=== PATIENT | female | born 1955 | race Hispanic/Latino ===

== ENCOUNTER 2017-10-04 12:44 | Emergency (ER) | payer OTHER ==
[2017-10-04] MEDS ORDERED: SUBLIMAZE IV ONE (13:42)
--- NOTE | 2017-10-04 13:42 | Emergency Department Report ---
ED General Adult HPI - General Chief complaint: Arrhythmia/Palpitations Stated complaint: CHEST PAIN Time Seen by Provider: 10/04/17 13:28 Source: patient, EMS (ems notes not available at time of chart dictation), RN notes reviewed Mode of arrival: Stretcher Limitations: No Limitations - History of Present Illness Initial comments: This is a 61-year-old female who is not known to this provider previously. She currently follows with the [facility]. She has a history of nonischemic cardiomyopathy, [employer] [facility] ICD device, ejection fraction of 10-15%, and former tobacco consumption. Her only antiarrhythmic that she takes is metoprolol. She presents to the ER with complaint of ICD activation 2. She reports being in her usual state of health prior to the event. After the activation, she reports left-sided chest wall pain. Her pain feels like pressure and does not radiate anywhere. She currently denies headache, shortness of breath, abdominal pain, urinary symptoms, focal extremity weakness, numbness. She denies toxic drug ingestion. sHe denies recent cocaine use. -: Sudden Location: chest Radiation: non-radiation Quality: aching Consistency: other Improves with: other Worsens with: other Associated Symptoms: chest pain, malaise, weakness, other. denies: confusion, cough, diaphoresis, fever/chills, headaches, loss of appetite, nausea/vomiting, rash, seizure, shortness of breath, syncope - Related Data Home Medications Medication Instructions Recorded Confirmed Last Taken Furosemide [Lasix TAB] 20 mg PO DAILY PRN 02/03/14 02/03/14 Unknown Previous Rx's Medication Instructions Recorded Last Taken Type Aspirin [Aspirin TAB] 325 mg PO QDAY #30 tablet 02/07/14 Unknown Rx Cephalexin [Keflex] 500 mg PO TID #9 capsule 02/07/14 Unknown Rx HYDROcodone/APAP 5-325 [[place] 1 each PO Q6HR PRN #10 tablet 02/07/14 Unknown Rx 5-325 mg TAB] Losartan [Cozaar] 25 mg PO QDAY #30 tablet 02/07/14 Unknown Rx Metoprolol [Lopressor TAB] 50 mg PO Q8HR #90 tablet 02/07/14 Unknown Rx Allergies Allergy/AdvReac Type Severity Reaction Status Date / Time No Known Allergies Allergy Verified 10/04/17 13:26 ED Review of Systems ROS: Stated complaint: CHEST PAIN Other details as noted in HPI Comment: All other systems reviewed and negative ED Past Medical Hx - Past Medical History Previous Medical History?: Yes Hx CVA: Yes (tia 12/05) Hx Congestive Heart Failure: Yes Hx Diabetes: No Hx Asthma: No Hx COPD: No - Surgical History Past Surgical History?: Yes Hx Internal Defibrillator: Yes Additional Surgical History: hysterectomy, cardiac cath, cataract - Social History Smoking Status: Former Smoker Substance Use Type: None - Medications Home Medications: Home Medications Medication Instructions Recorded Confirmed Last Taken Type Furosemide [Lasix TAB] 20 mg PO DAILY PRN 02/03/14 02/03/14 Unknown History Aspirin [Aspirin TAB] 325 mg PO QDAY #30 tablet 02/07/14 Unknown Rx Cephalexin [Keflex] 500 mg PO TID #9 capsule 02/07/14 Unknown Rx HYDROcodone/APAP 5-325 [[place] 1 each PO Q6HR PRN #10 tablet 02/07/14 Unknown Rx 5-325 mg TAB] Losartan [Cozaar] 25 mg PO QDAY #30 tablet 02/07/14 Unknown Rx Metoprolol [Lopressor TAB] 50 mg PO Q8HR #90 tablet 02/07/14 Unknown Rx ED Physical Exam - General Limitations: No Limitations General appearance: alert, anxious - Head Head exam: Present: atraumatic, normocephalic - Eye Eye exam: Present: normal appearance, EOMI. Absent: nystagmus - ENT ENT exam: Present: normal exam, normal orophraynx, mucous membranes moist, normal external ear exam - Neck Neck exam: Present: normal inspection, full ROM - Respiratory Respiratory exam: Present: normal lung sounds bilaterally. Absent: respiratory distress, chest wall tenderness - Cardiovascular Cardiovascular Exam: Present: normal rhythm, tachycardia, normal heart sounds. Absent: systolic murmur, diastolic murmur, rubs, gallop - GI/Abdominal GI/Abdominal exam: Present: soft, normal bowel sounds. Absent: distended, tenderness, guarding, rebound, rigid, pulsatile mass - Extremities Exam Extremities exam: Present: normal inspection, full ROM, normal capillary refill , other (2+ pulses noted in the bilateral upper, lower extremities. Compartments soft. No long bony tenderness. The pelvis is stable.). Absent: pedal edema, joint swelling, calf tenderness - Back Exam Back exam: Present: normal inspection, full ROM. Absent: tenderness, CVA tenderness (R), paraspinal tenderness, vertebral tenderness - Neurological Exam Neurological exam: Present: alert, oriented X3, CN II-XII intact, other ( Extraocular movements intact. Tongue midline. No facial droop. Facial sensation intact to light touch in the V1, V2, V3 distribution bilaterally. 5 and 5 strength in 4 extremities.. Sensation is intact to light touch in 4 extremities.). Absent: motor sensory deficit - Psychiatric Psychiatric exam: Present: anxious - Skin Skin exam: Present: warm, dry, intact, normal color. Absent: rash ED Course Vital Signs 10/04/17 12:45 Temperature 97.9 F Pulse Rate 116 H Respiratory 20 Rate Blood Pressure 145/74 O2 Sat by Pulse 97 Oximetry - Reevaluation(s) Reevaluation #1: 10/04/17 15:39 Device interrogation indicates the patient had A. fib with RVR. No V. fib or V. tach as per the device customer account representative. Case is discussed with Dr. Ulloa, [place] physician who has also discussed the case with Dr. Salazar, Hospital physician at [facility], and arrangements have been made to transfer patient to [facility]. Dr. Salazar is the accepting physician. This was discussed with the patient and her family members were informed about the plan of care. ED Medical Decision Making - Lab Data Result diagrams: 10/04/17 14:18 10/04/17 14:18 Vital Signs 10/04/17 12:45 Temperature 97.9 F Pulse Rate 116 H Respiratory 20 Rate Blood Pressure 145/74 O2 Sat by Pulse 97 Oximetry - EKG Data EKG shows normal: sinus rhythm Rate: tachycardia - EKG Data Interpretation: no acute changes, unchanged when compared t 10/04/17 14:28 Sinus tachycardia, premature ventricular contractions, normal axis, QTC within normal limits, poor R wave progression, not a STEMI. Appears unchanged when compared to prior EKG from 10/29/2014. Motion artifact is noted. - Radiology Data Radiology results: pending, image reviewed interpreted by me: X-ray of the chest, interpreted by me, no acute disease, left-sided single lead ICD device is noted. - Medical Decision Making Differential diagnosis, including but not limited to: Arrhythmia, structural cardiac disease, electrolyte derangement Acute coronary syndrome Assessment and plan: 61-year-old female who reports ICD activation 2. We performed our own interrogation here, and transmitted the results to [facility]. The [employer] customer account representative, Mr. Rizwan Moore, reviewed the results, informed me that patient had 2 shocks, 5 J, and 30 J. He indicates the first shock was for presumed A. fib with RVR. He is not sure what the second shock was for. He reports a rapid heart rate of 220 bpm. He is not certain if it was SVT or ventricular ablation/tachycardia. We have contacted the [facility], and I have discussed the case with Dr. Ulloa, who is going to consult her card grinder to get back to me. The meantime , the patient will be interrogated by the [facility] customer account representative, her laboratory studies and electrolytes are pending, and an x-ray of the chest is also pending. Patient will most likely require admission for chest pain, ICD activation 2, and needs to be ruled out for V. fib/V. tach. Critical care attestation.: If time is entered above; I have spent that time in minutes in the direct care of this critically ill patient, excluding procedure time. ED Disposition Clinical Impression: Arrhythmia, Chest pain Disposition: [id number] [facility] GEN HOSP IP Is pt being admited?: No Does the pt Need Aspirin: Yes Condition: Stable Instructions: Chest Pain (ED) Referrals: PRIMARY CARE, [Primary Care Provider] - 3-5 Days
[2017-10-04 14:34] LABS: Hematocrit 42.9 % (30.3-42.9); Hemoglobin 14.6 gm/dl (10.1-14.3); Mean Corpuscular HGB Conc 34 % (30-34); Mean Corpuscular Hemoglobin 31 pg (28-32); Mean Corpuscular Volume 91 fl (79-97); Platelet Count 270 K/mm3 (140-440); Red Blood Count 4.73 M/mm3 (3.65-5.03); Red Cell Distribution Width 14.5 % (13.2-15.2)
[2017-10-04 14:47] LABS: INR 0.88 (0.87-1.13)
[2017-10-04 14:48] LABS: Partial Thromboplastin Time 23.7 Sec. (24.2-36.6)
[2017-10-04 14:52] LABS: BUN/Creatinine Ratio 18; Blood Urea Nitrogen 14 mg/dL (7-17); Calcium 9.6 mg/dL (8.4-10.2); Hemolysis Index 7
[2017-10-04] MEDS ORDERED: BABY ASPIRIN PO ONE (15:19)
--- NOTE | 2017-10-04 15:25 | XRay Report ---
AP CHEST: HISTORY: Dysrhythmia A single lead pacemaker device terminates in the right ventricle. AP view of the chest demonstrates a normal mediastinal and cardiac contour with clear lungs and normal bony and soft tissue structures. IMPRESSION: Unremarkable AP chest. No significant change since 10/29/14.
[2017-10-04] MEDS ORDERED: LOPRESSOR PO ONE (15:38)
[2017-10-04] MEDS ORDERED: SUBLIMAZE ONE (16:12)
[2017-10-04 18:11] VITALS: BP 130/79
== END 2017-10-04 18:12 | disposition short-term general hospital (02) ==
LOC: ED 12:44
DX: I49.9 Cardiac arrhythmia, unspecified (principal); R07.89 Other chest pain; Z86.73 Personal history of transient ischemic attack (TIA), and cerebral infarction without residual deficits; I50.9 Heart failure, unspecified; Z90.710 Acquired absence of both cervix and uterus; Z87.891 Personal history of nicotine dependence; Z98.890 Other specified postprocedural states; Z95.810 Presence of automatic (implantable) cardiac defibrillator
CPT/HCPCS: 36415; 71045; 80048; 83735; 84443; 84484; 85027; 85610; 85730; 93005; 93010; 96374; 99285; J3010

== ENCOUNTER 2021-03-25 00:41 | Emergency (ER) | payer MEDICARE ==
[2021-03-25] MEDS ORDERED: SODIUM CHLORIDE 0.9% 500 ML 500 ML IV ONE (00:57)
[2021-03-25] MEDS ORDERED: HEPARIN 10,000 UNITS/10 ML VIAL IV PRN (00:57)
[2021-03-25 01:24] LABS: Basophils # (Auto) 0.1 K/mm3 (0.0-0.1); Eosinophils # (Auto) 0.3 K/mm3 (0.0-0.4); Eosinophils % (Auto) 3.4 % (0.0-4.3); Hematocrit 41.4 % (30.3-42.9); Hemoglobin 13.5 gm/dl (10.1-14.3); Lymphocytes # (Auto) 2.5 K/mm3 (1.2-5.4); Lymphocytes % (Auto) 33.2 % (13.4-35.0); Mean Corpuscular HGB Conc 33 % (30-34); Mean Corpuscular Volume 93 fl (79-97); Monocytes # (Auto) 0.7 K/mm3 (0.0-0.8); Monocytes % (Auto) 9.1 % (0.0-7.3); Platelet Count 240 K/mm3 (140-440); Red Blood Count 4.43 M/mm3 (3.65-5.03); Red Cell Distribution Width 13.9 % (13.2-15.2)
[2021-03-25 01:59] LABS: Alanine Aminotransferase 17 units/L (7-56); Albumin 3.9 g/dL (3.9-5); BUN/Creatinine Ratio 21; Blood Urea Nitrogen 17 mg/dL (7-17); Calcium 9.3 mg/dL (8.4-10.2); Hemolysis Index 7
[2021-03-25 02:07] LABS: Bilirubin,Urine NEG (Negative); Blood,Urine SM (Negative); Color,Urine Yellow (Yellow); Protein,Urine <15 mg/dL mg/dL (Negative); RBC,Urine < 1.0 /HPF (0.0-6.0); Urobilinogen,Urine < 2.0 mg/dL (<2.0); WBC,Urine < 1.0 /HPF (0.0-6.0)
--- NOTE | 2021-03-25 02:26 | XRay Report ---
CHEST 1 VIEW INDICATION / CLINICAL INFORMATION: Dysrhythmia. COMPARISON: 10/04/2017 FINDINGS: SUPPORT DEVICES: None. HEART / MEDIASTINUM: No significant abnormality. Defibrillator device remains in stable and satisfact ory position. LUNGS / PLEURA: No significant pulmonary or pleural abnormality. No pneumothorax. ADDITIONAL FINDINGS: No significant additional findings. IMPRESSION: 1. No acute findings. No interval change. Signer Name: Paz Roberts MD Signed: 03/25/2021 2:22 AM Workstation Name: [id number]
--- NOTE | 2021-03-25 05:04 | Emergency Department Report ---
ED Palpitations HPI - General Chief Complaint: Arrhythmia/Palpitations Stated Complaint: DEFIBRALATOR FIRED ABOUT AN HOUR AGO. Time Seen by Provider: 03/25/21 00:56 Source: patient, EMS Mode of arrival: Stretcher Limitations: No Limitations - History of Present Illness Initial Comments: PT'S DEFIBRALATOR ACTIVATED ABOUT AN HOUR AGO. Complaint: rapid heart beat -: Sudden, hour(s) Context: occured during rest Arrythmia History: atrial fibrillation - Related Data Home Medications Medication Instructions Recorded Confirmed Last Taken Furosemide [Lasix TAB] 20 mg PO DAILY PRN 02/03/14 02/03/14 Unknown Previous Rx's Medication Instructions Recorded Last Taken Type Aspirin 325 mg PO QDAY #30 tablet 02/07/14 Unknown Rx Cephalexin [Keflex] 500 mg PO TID #9 capsule 02/07/14 Unknown Rx HYDROcodone/APAP 5-325 [[place] 1 each PO Q6HR PRN #10 tablet 02/07/14 Unknown Rx 5-325 mg TAB] Losartan [Cozaar] 25 mg PO QDAY #30 tablet 02/07/14 Unknown Rx Metoprolol [Lopressor TAB] 50 mg PO Q8HR #90 tablet 02/07/14 Unknown Rx Allergies Allergy/AdvReac Type Severity Reaction Status Date / Time No Known Allergies Allergy Verified 10/04/17 13:26 ED Review of Systems ROS: Stated complaint: DEFIBRALATOR FIRED ABOUT AN HOUR AGO. Other details as noted in HPI Constitutional: denies: chills, fever Eyes: denies: eye pain, eye discharge, vision change ENT: denies: ear pain, throat pain Respiratory: denies: cough, shortness of breath, wheezing Cardiovascular: denies: chest pain, palpitations Endocrine: no symptoms reported Gastrointestinal: denies: abdominal pain, nausea, diarrhea Genitourinary: denies: urgency, dysuria, discharge Musculoskeletal: denies: back pain, joint swelling, arthralgia Skin: denies: rash, lesions Neurological: denies: headache, weakness, paresthesias Psychiatric: denies: anxiety, depression Hematological/Lymphatic: denies: easy bleeding, easy bruising ED Past Medical Hx - Past Medical History Previous Medical History?: Yes Hx CVA: Yes (tia 12/05) Hx Congestive Heart Failure: Yes Hx Diabetes: No Hx Asthma: No Hx COPD: No Additional medical history: chronic back pain - Surgical History Past Surgical History?: Yes Hx Internal Defibrillator: Yes Additional Surgical History: hysterectomy, cardiac cath, cataract - Social History Smoking Status: Former Smoker Substance Use Type: None - Medications Home Medications: Home Medications Medication Instructions Recorded Confirmed Last Taken Type Furosemide [Lasix TAB] 20 mg PO DAILY PRN 02/03/14 02/03/14 Unknown History Aspirin 325 mg PO QDAY #30 tablet 02/07/14 Unknown Rx Cephalexin [Keflex] 500 mg PO TID #9 capsule 02/07/14 Unknown Rx HYDROcodone/APAP 5-325 [[place] 1 each PO Q6HR PRN #10 tablet 02/07/14 Unknown Rx 5-325 mg TAB] Losartan [Cozaar] 25 mg PO QDAY #30 tablet 02/07/14 Unknown Rx Metoprolol [Lopressor TAB] 50 mg PO Q8HR #90 tablet 02/07/14 Unknown Rx ED Physical Exam - General Limitations: No Limitations General appearance: alert, in no apparent distress - Head Head exam: Present: atraumatic, normocephalic - Eye Eye exam: Present: normal appearance - ENT ENT exam: Present: mucous membranes moist - Neck Neck exam: Present: normal inspection - Respiratory Respiratory exam: Present: normal lung sounds bilaterally. Absent: respiratory distress - Cardiovascular Cardiovascular Exam: Present: regular rate, normal rhythm. Absent: systolic murmur, diastolic murmur, rubs, gallop - GI/Abdominal GI/Abdominal exam: Present: soft, normal bowel sounds - Extremities Exam Extremities exam: Present: normal inspection - Back Exam Back exam: Present: normal inspection - Neurological Exam Neurological exam: Present: alert, oriented X3 - Psychiatric Psychiatric exam: Present: normal affect, normal mood - Skin Skin exam: Present: warm, dry, intact, normal color. Absent: rash ED Course Vital Signs 03/25/21 00:49 Temperature 97.7 F Pulse Rate 108 H Respiratory 16 Rate Blood Pressure 136/59 [Left] O2 Sat by Pulse 98 Oximetry - Reevaluation(s) Reevaluation #1: 03/25/21 05:02 work up neg , HR stable , paged [facility] for interrogaton, bhupinder from dispatch paged Fareed the rep, he will get back to us regarding interrogation 03/25/21 06:19 lopressor given to control HR, pt refused admission 03/25/21 06:20 spoke with jenn from the [facility] , only one episode of afib rvr ED Medical Decision Making - Lab Data Result diagrams: 03/25/21 01:10 03/25/21 01:10 Critical care attestation.: If time is entered above; I have spent that time in minutes in the direct care of this critically ill patient, excluding procedure time. ED Disposition Clinical Impression: Palpitation, Defibrillator discharge Disposition: HOME / SELF CARE / HOMELESS Is pt being admited?: No Does the pt Need Aspirin: No Condition: Stable Instructions: Palpitations, [id number] Referrals: PRIMARY CARE, [Primary Care Provider] - 3-5 Days
[2021-03-25] MEDS ORDERED: METOPROLOL TARTRATE 5 MG/5 ML INJ IV ONE (05:57)
[2021-03-25 07:53] VITALS: BP 129/62
--- NOTE | 2021-03-26 10:14 | Electrocardiograph Report ---
[facility] Test Date: 2021-03-25 Test Time: 01:00:49 Pat Name: JOHANA DIXON Department: Room: Gender: F Pattern Carrier: YENIFER : 1955 Requested By: SARAH HOGAN Order Number: [id number] Reading MD: Jonnathan Alan Measurements Intervals Faber Rate: 107 P: 69 VA: 153 QRS: 46 QRSD: 82 T: 104 QT: 334 QTc: 446 Interpretive Statements Sinus tachycardia Possible old anteroseptal infarct Nonspecific T abnormalities, lateral leads No previous ECG available for comparison Electronically Signed On 03-26-2021 10:14:17 EST by Jonnathan Alan
== END 2021-03-25 07:56 | disposition home or self-care (01) ==
LOC: ED 00:41
DX: R00.2 Palpitations (principal); Z45.02 Encounter for adjustment and management of automatic implantable cardiac defibrillator; Z86.73 Personal history of transient ischemic attack (TIA), and cerebral infarction without residual deficits; I50.9 Heart failure, unspecified; M54.9 Dorsalgia, unspecified; Z90.710 Acquired absence of both cervix and uterus; Z98.890 Other specified postprocedural states; Z87.891 Personal history of nicotine dependence
CPT/HCPCS: 36415; 71045; 80053; 81001; 82550; 82553; 83735; 84484; 85025; 85610; 93005; 93010; 96374; 99284; J9280